=== PATIENT | female | born 1970 | race African-American/Black ===

== ENCOUNTER 2023-08-11 09:30 | Emergency (ER) | payer MEDICAID ==
[~2023-08-11] VITALS: Ht 167.6 cm; Wt 97.0 kg
[2023-08-11 09:37] VITALS: O2SAT 98
[2023-08-11 10:33] LABS: BASOPHILS % 0.7 % (0.0-2.0); DIFFERENTIAL COMMENT 0; EOSINOPHILS % 1.3 % (0.0-5.0); HEMATOCRIT. 37.5 % (36.0-48.0); HEMOGLOBIN. 12.9 g/dL (12.0-16.0); LYMPHOCYTES % 13.3 % (20.0-50.0); MEAN CORPUSCULAR HEMOGLOBIN 34.8 pg (28.0-32.0); MEAN CORPUSCULAR HGB CONC 34.3 g/dL (31.0-37.0); MEAN CORPUSCULAR VOLUME 101.6 fL (81.0-99.0); MONOCYTES % 10.2 % (2.0-8.0); NEUTROPHILS % 74.5 % (40.0-76.0); PLATELET 390 x1000/uL (130-400); RED BLOOD CELL COUNT 3.69 mill/uL (4.2-5.4); RED CELL DISTRIBUTION WIDTH 18.6 % (11.6-14.6); WHITE BLOOD COUNT 8.1 x1000/uL (4.5-11.0)
[2023-08-11 10:55] LABS: ALANINE AMINOTRANSFERASE 20 IU/L (10-49); ALBUMIN 4.2 g/dL (3.2-4.8); ASPARTATE AMINOTRANSFERASE 29 IU/L (<34); BILIRUBIN TOTAL 0.3 mg/dL (0.1-1.0); CALCIUM 8.9 mg/dL (8.7-10.4); CARBON DIOXIDE 27 mEq/L (21-32); CHLORIDE 98 mEq/L (98-107); CREATININE 0.6 mg/dL (0.6-1.0); GLUCOSE 94 mg/dL (70-105); PROTEIN TOTAL 7.4 g/dL (6.0-8.3); SODIUM 137 mEq/L (136-145); UREA NITROGEN BLOOD 6 mg/dL (9-23)
[2023-08-11 10:58] LABS: TROPONIN I HIGH SENSITIVITY < 4 ng/L (3.0-34)
[2023-08-11 11:11] LABS: CLARITY URINE CLEAR (CLEAR); COLOR URINE YELLOW (YELLOW); GLUCOSE URINE NEGATIVE (NEGATIVE); KETONES URINE TRACE (NEGATIVE); LEUKOCYTE ESTERASE URINE NEGATIVE (NEGATIVE); NITRITE URINE NEGATIVE (NEGATIVE); OCCULT BLOOD URINE NEGATIVE (NEGATIVE); PROTEIN URINE NEGATIVE (NEGATIVE); SPECIFIC GRAVITY URINE 1.017 (1.005-1.030); UROBILINOGEN URINE 0.2 E.U./dL (0.2-1.0)
[2023-08-11] MEDS ORDERED: KCL 10MEQ/50ML PREMIX 50 ML IV ONE (12:15)
[2023-08-11 12:17] VITALS: TEMP 98.1
[2023-08-11] MEDS: ONDANSETRON HCL 4MG/2ML INJ IV STA (12:43)
[2023-08-11] MEDS: SODIUM CHLORIDE 0.9% 1,000 ML IV ONE (12:43)
[2023-08-11] MEDS: MAGNESIUM/ALUMINUM HYDROXIDE/SIMETHICONE 30ML UDC PO STA (12:43)
[2023-08-11] MEDS: KETOROLAC 30MG/ML VIAL IV STA (12:43)
[2023-08-11] MEDS: POTASSIUM CHLORIDE 20MEQ TABLET SR PO ONE (12:44)
[2023-08-11] MEDS: FAMOTIDINE 20MG/2ML VIAL IV STA (12:57)
[2023-08-11] MEDS ORDERED: ONDA4TAB11 PO (15:20)
[2023-08-11] MEDS ORDERED: FAMO-135 MT (15:20)
[2023-08-11] MEDS: KCL 10MEQ/50ML PREMIX 50 ML IV NR (15:36)
[2023-08-11 17:14] VITALS: BP 134/82; PULSE 88; RESP 18
== END 2023-08-11 17:20 | disposition home or self-care (01) ==
LOC: ER 09:30
DX: K29.70 Gastritis, unspecified, without bleeding (principal); D25.9 Leiomyoma of uterus, unspecified; E87.6 Hypokalemia; I10 Essential (primary) hypertension; Z98.890 Other specified postprocedural states
CPT/HCPCS: 80053; 81003; 81025; 83690; 85025; 84484; 36415; 74176; 93005; 96361; 96365; 96375; 99285; J3490; J1885; J2405; J3480; J7030; Z7610

== ENCOUNTER 2024-03-03 15:04 | Emergency (ER) | payer MEDICAID ==
[~2024-03-03] VITALS: Ht 170.2 cm; Wt 106.0 kg
[~2024-03-03 15:04] MED LIST: FAMO-135 MT; ONDA-239 PO
[2024-03-03 15:28] VITALS: TEMP 98.8; O2SAT 99
[2024-03-03 17:43] LABS: POTASSIUM 3.1 mEq/L (3.5-5.1)
[2024-03-03 17:46] LABS: BASOPHILS % 0.7 % (0.0-2.0); EOSINOPHILS % 1.8 % (0.0-5.0); HEMATOCRIT. 32.1 % (36.0-48.0); HEMOGLOBIN. 10.4 g/dL (12.0-16.0); LYMPHOCYTES % 11.5 % (20.0-50.0); MEAN CORPUSCULAR HGB CONC 32.5 g/dL (31.0-37.0); MEAN CORPUSCULAR VOLUME 111.1 fL (81.0-99.0); MEAN PLATELET VOLUME 7.1 fl (7.4-10.4); MONOCYTES % 4.6 % (2.0-8.0); NEUTROPHILS % 81.4 % (40.0-76.0); PLATELET 332 x1000/uL (130-400); RED BLOOD CELL COUNT 2.89 mill/uL (4.2-5.4); RED CELL DISTRIBUTION WIDTH 19.6 % (11.6-14.6); WHITE BLOOD COUNT 10.3 x1000/uL (4.5-11.0)
[2024-03-03 17:48] LABS: ADD RBC MORPHOLOGY YES; DIFFERENTIAL COMMENT 1
[2024-03-03 18:10] LABS: CLARITY URINE CLOUDY (CLEAR); COLOR URINE YELLOW (YELLOW); GLUCOSE URINE NEGATIVE (NEGATIVE); KETONES URINE NEGATIVE (NEGATIVE); LEUKOCYTE ESTERASE URINE 1+ (NEGATIVE); NITRITE URINE NEGATIVE (NEGATIVE); OCCULT BLOOD URINE NEGATIVE (NEGATIVE); PROTEIN URINE NEGATIVE (NEGATIVE); SPECIFIC GRAVITY URINE 1.012 (1.005-1.030); UROBILINOGEN URINE 0.2 E.U./dL (0.2-1.0)
[2024-03-03 18:13] LABS: CREATININE 2.2 mg/dL (0.6-1.0)
[2024-03-03] MEDS: POTASSIUM CHLORIDE 20MEQ/PACKET PO NR (18:34)
[2024-03-03 18:48] LABS: BACTERIA URINE 1+; RBC URINE 0-2 /hpf (0-2); SQUAMOUS EPITHELIAL CELL URINE 1+ /lpf (RARE/1+)
[2024-03-03 18:55] LABS: ANISOCYTOSIS 2+; PLATELET ESTIMATE NORMAL
[2024-03-03 19:07] VITALS: BP 130/82; PULSE 80; RESP 16
[2024-03-03] MEDS: KETOROLAC 30MG/ML VIAL IM ONE (19:07)
[2024-03-03 19:08] LABS: TROPONIN I HIGH SENSITIVITY < 4 ng/L (3.0-34)
[2024-03-03] MEDS ORDERED: IBUP-2029 MT (19:28)
== END 2024-03-03 21:32 | disposition home or self-care (01) ==
LOC: ER 15:04
DX: M79.89 Other specified soft tissue disorders (principal); I10 Essential (primary) hypertension; Z98.890 Other specified postprocedural states
CPT/HCPCS: 99285; 93971; 80048; 81003; 83880; 85025; 84484; 36415; 96372; J1885